=== PATIENT | male | born 1965 | race Caucasian/White ===

== ENCOUNTER 2020-03-25 13:09 | Inpatient (IN) | payer MEDICARE ==
[~2020-03-25] VITALS: Ht 182.9 cm; Wt 138.5 kg
[2020-03-25] VITALS (346 sets, daily range): BP systolic 124–159; BP diastolic 86–106; PULSE 93–95; TEMP 97.8–98; O2SAT 91–100
[2020-03-25] MEDS ORDERED: LIPITOR20 MG PO (13:18)
[2020-03-25] MEDS ORDERED: LOPRESSOR 225 MG/TAB PO (13:19)
[2020-03-25] MEDS ORDERED: FORT1000TA PO (13:20)
[2020-03-25] MEDS ORDERED: PRINIVIL20 MG PO (13:20)
[2020-03-25 13:29] LABS: BASO % 0.3 % (0.0-2.0); EOS # 0.1 (0.0-0.7); EOS % 1.4 % (0-4.0); GRAN # 3.5 (1.4-6.5); HEMATOCRIT 49.7 % (42.0-52.0); HEMOGLOBIN 16.9 g/dl (13.5-18.0); LYMPH # 1.7 (1.2-3.4); MEAN CELL VOLUME 93 fl (80.0-100.0); MEAN CORPUSCULAR HEMOGLOBIN 32 pg (27.0-31.0); MEAN CORPUSCULAR HGB CONC 34 g/dl (33.0-37.0); MEAN PLATELET VOLUME 11.7 fl (7.4-10.4); MONO # 0.5 (0.1-0.6); PLATELET COUNT 140 K/mm3 (130-400); RED BLOOD COUNT 5.37 M/mm3 (4.20-5.60); REDCELL DISTRIBUTION WIDTH-CV 12.6 % (11.5-14.5)
[2020-03-25] MEDS ORDERED: PROZAC40 MG PO (13:29)
[2020-03-25] MEDS ORDERED: GLUCOTROL 5M5 MG/TAB PO (13:32)
[2020-03-25 13:38] LABS: PROTHROMBIN TIME 11.1 SECONDS (9.7-12.8)
[2020-03-25 13:40] LABS: PARTIAL THROMBOPLASTIN TIME 30.3 SECONDS (26.0-37.0)
[2020-03-25 13:43] LABS: ALANINE AMINOTRANSFERASE 60 U/L (4-49); ALBUMIN 3.5 gm/dL (3.5-5.0); ALKALINE PHOSPHATASE 160 U/L (50-136); ANION GAP 9 mmol/L (7-16); AST,SGOT 39 U/L (15-37); BILIRUBIN,TOTAL 0.4 mg/dL (0.0-1.0); BLOOD UREA NITROGEN 17 mg/dL (9-20); C-REACTIVE PROTEIN 0.7 mg/dL (0.0-0.9); CALCIUM 9.3 mg/dL (8.4-10.2); CARBON DIOXIDE 24 mmol/L (22-30); CHLORIDE 102 mmol/L (98-107); CREATININE, serum 1.17 (0.66-1.25); LIPASE 99 U/L (23-300); POTASSIUM 4.8 mmol/L (3.4-5.0); SODIUM 135 mmol/L (137-145); TOTAL PROTEIN 7.5 gm/dL (6.4-8.2)
[2020-03-25 13:48] LABS: GLUCOSE 483 mg/dL (74-106)
[2020-03-25 13:51] LABS: D-DIMER < 200.00 ng/mLDDu (200-230)
[2020-03-25 13:52] LABS: TROPONIN-I < 0.012 ng/mL (0.000-0.035)
[2020-03-26] VITALS (1047 sets, daily range): BP systolic 107–128; BP diastolic 68–86; PULSE 70–86; TEMP 97.5–98.2; O2SAT 79–100
[2020-03-26 04:55] LABS: BASO % 0.3 % (0.0-2.0); EOS # 0.1 (0.0-0.7); EOS % 1.6 % (0-4.0); GRAN # 3.7 (1.4-6.5); GRAN % 53.6 % (42.2-75.2); HEMATOCRIT 45.5 % (42.0-52.0); HEMOGLOBIN 15.3 g/dl (13.5-18.0); LYMPH # 2.5 (1.2-3.4); LYMPH % 36.1 % (20.0-51.0); MEAN CELL VOLUME 93 fl (80.0-100.0); MEAN CORPUSCULAR HEMOGLOBIN 31 pg (27.0-31.0); MEAN CORPUSCULAR HGB CONC 34 g/dl (33.0-37.0); MEAN PLATELET VOLUME 11.6 fl (7.4-10.4); MONO # 0.6 (0.1-0.6); PLATELET COUNT 140 K/mm3 (130-400); RED BLOOD COUNT 4.91 M/mm3 (4.20-5.60); REDCELL DISTRIBUTION WIDTH-CV 12.8 % (11.5-14.5)
[2020-03-26 05:01] LABS: ALANINE AMINOTRANSFERASE 71 U/L (4-49); ALBUMIN 3.3 gm/dL (3.5-5.0); ALKALINE PHOSPHATASE 98 U/L (50-136); ANION GAP 5 mmol/L (7-16); AST,SGOT 50 U/L (15-37); BILIRUBIN,TOTAL 0.4 mg/dL (0.0-1.0); BLOOD UREA NITROGEN 15 mg/dL (9-20); CALCIUM 8.7 mg/dL (8.4-10.2); CARBON DIOXIDE 23 mmol/L (22-30); CHLORIDE 105 mmol/L (98-107); CREATININE, serum 0.88 (0.66-1.25); GLUCOSE 331 mg/dL (74-106); MAGNESIUM 1.5 mg/dL (1.6-2.3); POTASSIUM 4.5 mmol/L (3.4-5.0); SODIUM 133 mmol/L (137-145)
[2020-03-26 05:14] LABS: TROPONIN-I < 0.012 ng/mL (0.000-0.035)
--- NOTE | 2020-03-26 06:37 | NUR ---
HEPARIN DOSE RE ADJUSTED AND VERIFIED WITH JAMIE GONZALEZ.
--- NOTE | 2020-03-26 07:29 | NUR ---
REPORT GIVEN TO JAMIE AMANDA.
[2020-03-26 12:41] LABS: HEMATOCRIT 45.9 % (42.0-52.0); HEMOGLOBIN 15.5 g/dl (13.5-18.0); MEAN CELL VOLUME 94 fl (80.0-100.0); MEAN CORPUSCULAR HEMOGLOBIN 32 pg (27.0-31.0); MEAN CORPUSCULAR HGB CONC 34 g/dl (33.0-37.0); MEAN PLATELET VOLUME 12.1 fl (7.4-10.4); PLATELET COUNT 138 K/mm3 (130-400); RED BLOOD COUNT 4.87 M/mm3 (4.20-5.60); REDCELL DISTRIBUTION WIDTH-CV 12.9 % (11.5-14.5)
[2020-03-26 12:45] LABS: PARTIAL THROMBOPLASTIN TIME 48.3 SECONDS (26.0-37.0); PROTHROMBIN TIME 11.6 SECONDS (9.7-12.8)
--- NOTE | 2020-03-26 13:43 | NUR ---
SW met with patient from door. Patient plans to return home to his apt. in [place] after proceedure. Patient reports that he is new to the area and does not have a PCP and is not familiar the area. Client reports that he will use [facility] in [place] for RX. No DPOA and does not use any DME. Client does have stints in his heart and is on Diability. . EMR contact is Era Stanley . Patient reports that family will transport him home. Patient denies any care concerns at this times.
--- NOTE | 2020-03-26 19:10 | NUR ---
Received report from JAMIE Plummer.
[2020-03-27] VITALS (444 sets, daily range): BP systolic 102–173; BP diastolic 60–99; PULSE 68–87; TEMP 97.6–97.7; O2SAT 78–100
[2020-03-27 05:43] LABS: ALBUMIN 3.4 gm/dL (3.5-5.0); BILIRUBIN,TOTAL 0.4 mg/dL (0.0-1.0); CALCIUM 8.8 mg/dL (8.4-10.2); CREATININE, serum 0.88 (0.66-1.25); MAGNESIUM 1.7 mg/dL (1.6-2.3); POTASSIUM 4.7 mmol/L (3.4-5.0); TOTAL PROTEIN 7.2 gm/dL (6.4-8.2)
--- NOTE | 2020-03-27 08:05 | NUR ---
Pt assessment complete. Pt is sitting up in bed A/O x4, but very restless. Pt up to door of room during shift change asking if the doctor were coming soon that he is feeling better than when he came in. Then proceeded to go back to bed saying "if you're getting other pills may as well bring me a shot of morphine". Pt now rating chest pain "same as always" 05/26. Has no N/V, asking to eat. POC discussed with patient who is uninterested. Heparin infusing. Will continue to monitor.
--- NOTE | 2020-03-27 10:37 | NUR ---
KONSTANTIN met with the patient to follow up about a PCP. The patient reports that he would be interested in getting set up with a PCP is [place]. KONSTANTIN contacted Kanika at [facility] and provided her with the patient's information. Kanika reports that she has to send out a message to the doctors taking new patients and then she will contact the patient to set up an appointment. KONSTANTIN notified the patient of this and he verbalized understanding. KONSTANTIN to continue to follow as needed.
--- NOTE | 2020-03-27 11:52 | NUR ---
Pt left for heart cath at this time.
--- NOTE | 2020-03-27 12:51 | NUR ---
SEE MERGE FOR MEDICATION ADMINISTRATION TIMES AND INTRA AND POST SEDATION ASSESSMENTS.
[2020-03-27] MEDS ORDERED: LIPITOR 40MG TA40 MG PO (14:44)
[2020-03-27] MEDS ORDERED: LOPRESSOR 225 MG/TAB PO (14:44)
[2020-03-27] MEDS ORDERED: ASPIRIN 81M81 MG/TA2 PO (14:45)
[2020-03-27] MEDS ORDERED: LEVEMIR FLEX100 U/ML SQ (14:47)
--- NOTE | 2020-03-27 15:30 | NUR ---
5mls released from arm band, no bleeding noted. Will follow radial band procedure.
--- NOTE | 2020-03-27 15:43 | NUR ---
Air completely removed from TR band, No bleeding at this time. Will continue to monitor.
--- NOTE | 2020-03-27 16:00 | NUR ---
TR band removed no bleeding present. Bandaid placed. Discharge paperwork and instructions reviewed with patient. All questions answered at this time. IV to L shoulder dc'd. Catheter tip intact. Attempting to get ahold of patients niece for a ride at this time.
--- NOTE | 2020-03-27 19:00 | NUR ---
Pt walked out of facility at this time.
== END 2020-03-27 19:00 | disposition home or self-care (01) | DRG 287 ==
LOC: COL.ER 13:09 → IMCU 14:47
PROVIDERS: Emergency Medicine; Internal Medicine Cardiovascular Disease; ADMIT Student in an Organized Health Care Education/Training Program
PROC: 4A023N7 Measurement of Cardiac Sampling and Pressure, Left Heart, Percutaneous Approach (ICD-10-PCS; principal; 2020-03-27)
PROC: B2111ZZ Fluoroscopy of Multiple Coronary Arteries using Low Osmolar Contrast (ICD-10-PCS; 2020-03-27)
DX: R07.9 Chest pain, unspecified (principal); I25.110 Atherosclerotic heart disease of native coronary artery with unstable angina pectoris; Z68.41 Body mass index [BMI] 40.0-44.9, adult; I25.10 Atherosclerotic heart disease of native coronary artery without angina pectoris; E11.65 Type 2 diabetes mellitus with hyperglycemia; E83.42 Hypomagnesemia; E66.01 Morbid (severe) obesity due to excess calories; Z95.818 Presence of other cardiac implants and grafts; F17.210 Nicotine dependence, cigarettes, uncomplicated; I10 Essential (primary) hypertension; E78.5 Hyperlipidemia, unspecified; Z95.5 Presence of coronary angioplasty implant and graft; Z79.84 Long term (current) use of oral hypoglycemic drugs; Z88.5 Allergy status to narcotic agent; Z88.6 Allergy status to analgesic agent
CPT/HCPCS: OP; 99222-AI; 99232-AI; 99239; J1644; J1815; J2250; J2270; J2405; J3010; J3475; J7030; Q9967

== ENCOUNTER 2020-10-14 15:39 | Emergency (ER) | payer MEDICARE ==
[~2020-10-14] VITALS: Ht 182.9 cm; Wt 143.2 kg
[~2020-10-14 15:39] MED LIST: ASPIRIN 81M81 MG/TA2 PO; FORT1000TA PO; GLUCOPHAGE1000 MG PO; GLUCOTROL 5M5 MG/TAB PO; GLUCOTROL10 MG PO; LEVEMIR FLEX100 U/ML SQ; LIPITOR 40MG TA40 MG PO; LIPITOR20 MG PO; LOPRESSOR 225 MG/TAB PO; NEURONTIN600 MG/TAB PO; PRINIVIL20 MG PO; PROZAC 20MG20 MG PO; PROZAC40 MG PO; VOLTAREN 75 DR75 MG PO
[2020-10-14 15:45] VITALS: TEMP 98.2
[2020-10-14 15:59] LABS: BASO % 0.3 % (0.0-2.0); EOS # 0.1 (0.0-0.7); EOS % 1.2 % (0-4.0); GRAN # 4.8 (1.4-6.5); GRAN % 60.8 % (42.2-75.2); HEMATOCRIT 44.1 % (42.0-52.0); HEMOGLOBIN 14.9 g/dl (13.5-18.0); LYMPH # 2.2 (1.2-3.4); LYMPH % 28.1 % (20.0-51.0); MEAN CELL VOLUME 96 fl (80.0-100.0); MEAN CORPUSCULAR HEMOGLOBIN 32 pg (27.0-31.0); MEAN CORPUSCULAR HGB CONC 34 g/dl (33.0-37.0); MEAN PLATELET VOLUME 11.1 fl (7.4-10.4); MONO # 0.7 (0.1-0.6); MONO % 9.3 % (1.7-9.3); PLATELET COUNT 203 K/mm3 (130-400)
[2020-10-14] MEDS ORDERED: AMBIEN 5MG TABLE5 MG PO (16:02)
[2020-10-14] MEDS ORDERED: LATUDA20 MG PO (16:02)
[2020-10-14 16:16] LABS: ALANINE AMINOTRANSFERASE 35 U/L (4-49); ALBUMIN 4.1 gm/dL (3.5-5.0); ALKALINE PHOSPHATASE 84 U/L (50-136); ANION GAP 7 mmol/L (7-16); AST,SGOT 25 U/L (15-37); BILIRUBIN,TOTAL 0.4 mg/dL (0.0-1.0); BLOOD UREA NITROGEN 18 mg/dL (9-20); CALCIUM 9.4 mg/dL (8.4-10.2); CARBON DIOXIDE 30 mmol/L (22-30); CHLORIDE 102 mmol/L (98-107); CREATININE, serum 1.26 (0.66-1.25); GLUCOSE 125 mg/dL (74-106); POTASSIUM 4.7 mmol/L (3.4-5.0); SODIUM 139 mmol/L (137-145); TOTAL PROTEIN 7.9 gm/dL (6.4-8.2)
[2020-10-14 16:29] LABS: TROPONIN-I < 0.012 ng/mL (0.000-0.035)
[2020-10-14 16:56] VITALS: BP 128/83; PULSE 83
== END 2020-10-14 17:06 | disposition home or self-care (01) ==
LOC: COL.ER 15:39
PROVIDERS: Emergency Medicine
DX: R07.9 Chest pain, unspecified (principal); E11.9 Type 2 diabetes mellitus without complications; I25.10 Atherosclerotic heart disease of native coronary artery without angina pectoris; F17.210 Nicotine dependence, cigarettes, uncomplicated; Z88.6 Allergy status to analgesic agent; Z88.5 Allergy status to narcotic agent; Z88.8 Allergy status to other drugs, medicaments and biological substances; Z79.82 Long term (current) use of aspirin; Z79.84 Long term (current) use of oral hypoglycemic drugs

== ENCOUNTER 2020-12-14 00:56 | Observation (INO) | payer MEDICARE ==
[~2020-12-14] VITALS: Ht 180.3 cm; Wt 147.7 kg
[~2020-12-14 00:56] MED LIST changes: +AMBIEN 5MG TABLE5 MG PO; +LATUDA20 MG PO
[2020-12-14 02:41] LABS: BASO % 0.3 % (0.0-2.0); EOS # 0.1 (0.0-0.7); EOS % 1.9 % (0-4.0); GRAN # 4.7 (1.4-6.5); GRAN % 65.2 % (42.2-75.2); HEMATOCRIT 44.4 % (42.0-52.0); HEMOGLOBIN 14.5 g/dl (13.5-18.0); LYMPH # 1.8 (1.2-3.4); LYMPH % 24.7 % (20.0-51.0); MEAN CELL VOLUME 97 fl (80.0-100.0); MEAN CORPUSCULAR HEMOGLOBIN 32 pg (27.0-31.0); MEAN CORPUSCULAR HGB CONC 33 g/dl (33.0-37.0); MEAN PLATELET VOLUME 10.4 fl (7.4-10.4); MONO # 0.6 (0.1-0.6); MONO % 7.6 % (1.7-9.3); PLATELET COUNT 159 K/mm3 (130-400); RED BLOOD COUNT 4.59 M/mm3 (4.20-5.60); REDCELL DISTRIBUTION WIDTH-CV 13.3 % (11.5-14.5)
[2020-12-14 02:50] LABS: INR 1.1 (0.8-3.0); PROTHROMBIN TIME 11.9 SECONDS (9.7-12.8)
[2020-12-14 02:58] LABS: ALANINE AMINOTRANSFERASE 34 U/L (4-49); ALKALINE PHOSPHATASE 109 U/L (50-136); ANION GAP 7 mmol/L (7-16); AST,SGOT 30 U/L (15-37); BILIRUBIN,TOTAL 0.4 mg/dL (0.0-1.0); BLOOD UREA NITROGEN 15 mg/dL (9-20); C-REACTIVE PROTEIN 2.3 mg/dL (0.0-0.9); CALCIUM 9.3 mg/dL (8.4-10.2); CARBON DIOXIDE 27 mmol/L (22-30); CHLORIDE 105 mmol/L (98-107); CREATINE KINASE 123 U/L (55-170); CREATININE, serum 1.25 (0.66-1.25); GLUCOSE 175 mg/dL (74-106); LACTATE DEHYDROGENASE 303 U/L (313-618); POTASSIUM 4.6 mmol/L (3.4-5.0); SODIUM 139 mmol/L (137-145); TOTAL PROTEIN 7.8 gm/dL (6.4-8.2)
[2020-12-14 03:38] LABS: TROPONIN-I < 0.012 ng/mL (0.000-0.035)
[2020-12-14 06:37] VITALS: BP 122/80; PULSE 90; TEMP 98.2
[2020-12-14 08:37] VITALS: BP 136/57; PULSE 92; TEMP 97.6
--- NOTE | 2020-12-14 09:00 | NUR ---
Admission assessment completed, alert/oriented, vital signs stable, reporting some generalized chest tightness/discomfort, troponin negative, heart RRR, lungs CTA/ diminished, on room air and o2 sats WNL, I have notifeid of patient arrival to the floor, I have no orders for meds or Tx at this time, will continue to monitor patient
--- NOTE | 2020-12-14 10:17 | NUR ---
The patient is a PUI for COVID. SW contacted the patient's room phone to complete intake. The patient lives alone in [place]. He states that his niece, Era Otoole (ph#[phone]), also lives in [place] and helps him when needed. He reports independence with ADLs and does not have any DME. The patient's PCP is Dr. Yaya Greene and he receives his medications from [facility] [place]. He reports no difficulties obtaining his meds. The patient does not have a DPOA-HC completed. He states that he is not , does not have any children, and his parents are . He states that he has three siblings that live in [place], but does not talk to them. He would want his niece, Era, to be his decision maker. SW encouraged the patient to complete a DPOA-HC. The patient was interested in obtaining a form. SW to provide the patient's RN with a DPOA-HC form. The patient plans to returns home upon discharge. SW to follow as needed.
[2020-12-14 12:15] VITALS: BP 148/70; PULSE 91; TEMP 97.7
[2020-12-14] MEDS ORDERED: ABILIFY 10MG TA10 MG PO (16:18)
[2020-12-14 16:31] VITALS: BP 130/66; PULSE 85; TEMP 97.8
[2020-12-14 19:17] VITALS: BP 158/84; PULSE 88; TEMP 97.5
--- NOTE | 2020-12-14 19:26 | NUR ---
RECEIVED CHANGE OF SHIFT REPORT FROM DAY SHIFT NURSE.
--- NOTE | 2020-12-14 20:27 | NUR ---
PATIENT REPORTS PAIN TO BOTH SIDES WITH DEEP BREATHING AND COUGHING WITH PRODUCTIVE COUGH "AT TIMES". TELE IN PLACE. IV SITE PATENT WITH IVF INFUSING WITH NO PROBLEMS, REPORTS NO PROBLEMS WITH BEING UP AD BILL IN ROOM.
[2020-12-14 23:54] VITALS: BP 162/88; PULSE 74; TEMP 97.6
--- NOTE | 2020-12-15 00:30 | NUR ---
PATIENT REPORTED IV SITE NEEDS TO BE LOOKED AT, "IT'S LEAKING BAD". OBSERVED IV SITE WITHOUT ACTIVE LEAKING AT THIS TIME W/NO REDNESS/TENDERNESS/INFILTRATION/EDEMA OBSERVED. PATIENT REPORTED TO PCT THAT HE DID NOT THINK IV MS "WENT THROUGH... DID NOT FEEL IT" THEN REPORTED TO THIS NURSE THAT HE THOUGHT MS WENT THROUGH AND THAT HE "FELT IT GO THROUGH". ATTEMPTED VENIPUNCTURE FOR IV SITE, UNSUCCESSFUL. CURRENT UPPER RF IV SITE IN PLACE. NO FURTHER VENIPUNCTURES ATTEMPTED, PATIENT REPORTED H/O VEINS "ROLLING".
--- NOTE | 2020-12-15 00:57 | NUR ---
KWAME AYALA EVALUATED BUE FOR POSSIBLE VENIPUNCTURE FOR NEW IV SITE AND AFTER DISCUSSING WITH PATIENT, DECISION BY PATIENT TO POSTPONE ANY FURTHER VENIPUNCTURE ATTEMPTS AT THIS TIME STATING HE WILL SEE IF IV SITE WILL LAST THROUGH TILL IN AM BEFORE NEEDING ANOTHER IV SITE. NO OTHER NEEDS REPORTED. CURRENT IV SITE REMAINS WITHOUT REDNESS/LEAKING/EDEMA/PAIN WITH PALPATION AT THIS TIME.
[2020-12-15 05:02] VITALS: BP 152/80; PULSE 76; TEMP 97.4
[2020-12-15 06:20] LABS: BASO % 0.3 % (0.0-2.0); EOS % 0.5 % (0-4.0); GRAN # 5.4 (1.4-6.5); GRAN % 70.4 % (42.2-75.2); HEMOGLOBIN 12.6 g/dl (13.5-18.0); LYMPH # 1.6 (1.2-3.4); MEAN CELL VOLUME 96 fl (80.0-100.0); MEAN CORPUSCULAR HEMOGLOBIN 32 pg (27.0-31.0); MEAN CORPUSCULAR HGB CONC 33 g/dl (33.0-37.0); MEAN PLATELET VOLUME 10.5 fl (7.4-10.4); MONO # 0.6 (0.1-0.6); MONO % 7.3 % (1.7-9.3); PLATELET COUNT 149 K/mm3 (130-400); RED BLOOD COUNT 3.94 M/mm3 (4.20-5.60); REDCELL DISTRIBUTION WIDTH-CV 13.2 % (11.5-14.5)
[2020-12-15 06:32] LABS: CALCIUM 8.5 mg/dL (8.4-10.2); CREATININE, serum 1.04 (0.66-1.25); MAGNESIUM 1.4 mg/dL (1.6-2.3); POTASSIUM 4.1 mmol/L (3.4-5.0)
--- NOTE | 2020-12-15 07:39 | NUR ---
CHANGE OF SHIFT REPORT GIVEN TO DAY SHIFT NURSERADHA.
[2020-12-15 07:47] VITALS: BP 156/82; PULSE 75; TEMP 97.8
--- NOTE | 2020-12-15 09:54 | NUR ---
Initial visit; Patient thanked Metal Room Dental Technician for looking in on him, listening and offering God's blessings.
--- NOTE | 2020-12-15 10:13 | NUR ---
The patient's COVID results came back negative. KONSTANTIN met with the patient and followed up about the DPOA-HC. The patient is interested in completing a DPOA-HC. He designated his niece, Era Otoole. KONSTANTIN and his RN, Josias, witnessed the patient's signature. The patient was provided with the original and some copies.
--- NOTE | 2020-12-15 10:25 | NUR ---
Assessment completed, alert/oriented, vital signs stable, continues to report moderate chest discomfort/ notified and we will get a chest CT, lungs CTA/ diminished in lower lobes, heart RRR/distal pulses are palpable, SR on tele, continues to do well on room air, fsbs are in control, Oxycodone given per request, notified of low Mg level today/ replacing with IV Mg, plans to discharge home if Chest CT negative
[2020-12-15 11:49] VITALS: BP 170/73; PULSE 65; TEMP 98.1
--- NOTE | 2020-12-15 12:02 | NUR ---
The patient was transferred to the hospital from the [facility]. The hospitalist notified KONSTANTIN that the patient is medically stable and able to d/c today. The hospitalist would like a screen done. KONSTANTIN contacted and faxed the patient's information to Radha at the Crisis Stabilization Unit. Radha reports that they will look over the info and call KONSTANTIN back to set up a zoom meeting.
--- NOTE | 2020-12-15 13:00 | NUR ---
Patient removed his IV, I restarted IV as he has orders for CT/PE protocol and IV MG replacement, he is going down for CT now
--- NOTE | 2020-12-15 13:08 | NUR ---
Ara, screener at [facility], contacted KONSTANTIN and provided KONSTANTIN with the Zoom meeting ID and password for the patient. KONSTANTIN obtained an iPad and set up the Zoom meeting. KONSTANTIN provided the iPad to the patient to get screened. The patient then exited his room and provided the iPad back to . Ara was still on the Zoom meeting. Ara reports that they want the patient to come back to the [facility]. Ara will contact KONSTANTIN back around [phone] to set up a transport time. KONSTANTIN notified the hospitalist and the patient's RN. Awaiting CAT scan results and for the patient to complete his magnesium.
[2020-12-15] MEDS ORDERED: RT Albuterol HFA MDI IH (15:16)
[2020-12-15] MEDS ORDERED: PREDNISONE20 MG PO (15:16)
[2020-12-15] MEDS ORDERED: MONODOX100 PO (15:16)
[2020-12-15] MEDS ORDERED: IBU600 MG PO (15:19)
--- NOTE | 2020-12-15 15:37 | NUR ---
KONSTANTIN contacted the [facility] to inquire if they can take the patient to get his prescriptions. The medical chemist reports that they can. KONSTANTIN then followed up with the patient about getting his prescriptions at a pharmacy. The patient reports that he does not have any money and cannot afford to get his meds. KONSTANTIN provided a med voucher to the patient for his meds to [facility], Total: $63.13. KONSTANTIN faxed the med voucher and scripts to Lamar at [facility]. Ara, at [facility], then contacted KONSTANTIN back for transportation. Mcdonald will be here at 1615 to pickling solution maker the patient and take him to [facility] to pickling solution maker his meds. KONSTANTIN updated the patient's RN on the above information. The patient is to discharge today, 12/05, to the Crisis Stabilization Unit. No additional needs at this time.
--- NOTE | 2020-12-15 16:47 | NUR ---
Discharge instructions reveiwed with the patient, instructed to follow up with PCP in 1 week, discussed medications and scritps for doxy/prednisone/albuterol provided, IV and tele removed, patient is discharging and leaving with [facility] Crisis [facility] for inpatient eval/tx, I escorted patient out by wheelchair
== END 2020-12-15 16:50 | disposition psychiatric hospital, planned readmission (93) ==
LOC: COL.ER 00:56 → PEDS 04:09 → MEDICAL 12-15 05:35
PROVIDERS: Emergency Medicine; Internal Medicine; ADMIT Student in an Organized Health Care Education/Training Program
DX: J18.9 Pneumonia, unspecified organism (principal); I95.9 Hypotension, unspecified; E11.9 Type 2 diabetes mellitus without complications; F32.9 Major depressive disorder, single episode, unspecified; E87.2 Acidosis; F17.210 Nicotine dependence, cigarettes, uncomplicated; I25.10 Atherosclerotic heart disease of native coronary artery without angina pectoris; E78.5 Hyperlipidemia, unspecified; I10 Essential (primary) hypertension; E66.01 Morbid (severe) obesity due to excess calories; Z88.1 Allergy status to other antibiotic agents; Z88.5 Allergy status to narcotic agent; Z88.8 Allergy status to other drugs, medicaments and biological substances; Z79.82 Long term (current) use of aspirin; Z79.84 Long term (current) use of oral hypoglycemic drugs; Z95.5 Presence of coronary angioplasty implant and graft; Z20.822 Contact with and (suspected) exposure to COVID-19
CPT/HCPCS: A9284; G0378; J0456; J0696; J1100; J1650; J1815; J2270; J3475; J7030; J7050; Q9967

== ENCOUNTER 2020-12-17 20:38 | Emergency (ER) | payer MEDICARE ==
[~2020-12-17] VITALS: Ht 180.3 cm; Wt 140.9 kg
[~2020-12-17 20:38] MED LIST changes: +ABILIFY 10MG TA10 MG PO; +IBU600 MG PO; +MONODOX100 PO; +PREDNISONE20 MG PO; +RT Albuterol HFA MDI IH
[2020-12-17 20:44] VITALS: TEMP 97.8
[2020-12-17 21:36] LABS: BASO % 0.2 % (0.0-2.0); GRAN # 6.4 (1.4-6.5); HEMATOCRIT 42.4 % (42.0-52.0); HEMOGLOBIN 13.7 g/dl (13.5-18.0); LYMPH # 1.2 (1.2-3.4); LYMPH % 14.3 % (20.0-51.0); MEAN CELL VOLUME 98 fl (80.0-100.0); MEAN CORPUSCULAR HEMOGLOBIN 32 pg (27.0-31.0); MEAN CORPUSCULAR HGB CONC 32 g/dl (33.0-37.0); MEAN PLATELET VOLUME 10.7 fl (7.4-10.4); MONO # 0.5 (0.1-0.6); PLATELET COUNT 181 K/mm3 (130-400); RED BLOOD COUNT 4.35 M/mm3 (4.20-5.60); REDCELL DISTRIBUTION WIDTH-CV 13.4 % (11.5-14.5)
[2020-12-17 21:46] LABS: ALANINE AMINOTRANSFERASE 34 U/L (4-49); ALBUMIN 3.7 gm/dL (3.5-5.0); ALKALINE PHOSPHATASE 159 U/L (50-136); ANION GAP 6 mmol/L (7-16); AST,SGOT 23 U/L (15-37); BILIRUBIN,TOTAL 0.3 mg/dL (0.0-1.0); BLOOD UREA NITROGEN 23 mg/dL (9-20); CALCIUM 9.5 mg/dL (8.4-10.2); CARBON DIOXIDE 29 mmol/L (22-30); CHLORIDE 103 mmol/L (98-107); CREATININE, serum 1.29 (0.66-1.25); GLUCOSE 186 mg/dL (74-106); POTASSIUM 4.9 mmol/L (3.4-5.0); SODIUM 139 mmol/L (137-145); TOTAL PROTEIN 7.4 gm/dL (6.4-8.2)
[2020-12-17 22:00] LABS: TROPONIN-I < 0.012 ng/mL (0.000-0.035)
[2020-12-17 23:02] VITALS: BP 156/90; PULSE 73
== END 2020-12-17 23:02 | disposition home or self-care (01) ==
LOC: COL.ER 20:38
PROVIDERS: Emergency Medicine
DX: I10 Essential (primary) hypertension (principal); E11.9 Type 2 diabetes mellitus without complications; I25.10 Atherosclerotic heart disease of native coronary artery without angina pectoris; Z95.5 Presence of coronary angioplasty implant and graft; Z86.79 Personal history of other diseases of the circulatory system; Z88.5 Allergy status to narcotic agent; Z88.6 Allergy status to analgesic agent; Z88.8 Allergy status to other drugs, medicaments and biological substances; Z79.82 Long term (current) use of aspirin; Z79.84 Long term (current) use of oral hypoglycemic drugs

== ENCOUNTER 2020-12-18 06:08 | Emergency (ER) | payer MEDICARE ==
[2020-12-18 06:46] VITALS: BP 133/77; PULSE 84; TEMP 97.6
== END 2020-12-18 07:02 | disposition home or self-care (01) ==
LOC: COL.ER 06:08
DX: I10 Essential (primary) hypertension (principal); Z91.14 Patient's other noncompliance with medication regimen; Z79.82 Long term (current) use of aspirin; Z79.52 Long term (current) use of systemic steroids; Z79.84 Long term (current) use of oral hypoglycemic drugs

== ENCOUNTER 2021-03-07 20:51 | Observation (INO) | payer MEDICARE ==
[~2021-03-07] VITALS: Ht 180.3 cm; Wt 161.1 kg
[2021-03-07 21:15] LABS: BASO % 0.3 % (0.0-2.0); EOS # 0.1 (0.0-0.7); EOS % 1.4 % (0-4.0); HEMATOCRIT 43.8 % (42.0-52.0); HEMOGLOBIN 14.3 g/dl (13.5-18.0); INR 1.1 (0.8-3.0); LYMPH # 1.9 (1.2-3.4); LYMPH % 24.7 % (20.0-51.0); MEAN CELL VOLUME 95 fl (80.0-100.0); MEAN CORPUSCULAR HEMOGLOBIN 31 pg (27.0-31.0); MEAN CORPUSCULAR HGB CONC 33 g/dl (33.0-37.0); MEAN PLATELET VOLUME 10.8 fl (7.4-10.4); MONO # 0.6 (0.1-0.6); MONO % 8.2 % (1.7-9.3); PLATELET COUNT 168 K/mm3 (130-400); PROTHROMBIN TIME 12.4 SECONDS (9.7-12.8); REDCELL DISTRIBUTION WIDTH-CV 13.2 % (11.5-14.5)
[2021-03-07 21:18] LABS: PARTIAL THROMBOPLASTIN TIME 31.2 SECONDS (26.0-37.0)
[2021-03-07 21:20] LABS: ALANINE AMINOTRANSFERASE 36 U/L (4-49); ALBUMIN 3.9 gm/dL (3.5-5.0); ALKALINE PHOSPHATASE 94 U/L (50-136); ANION GAP 6 mmol/L (7-16); AST,SGOT 27 U/L (15-37); BILIRUBIN,TOTAL 0.2 mg/dL (0.0-1.0); BLOOD UREA NITROGEN 25 mg/dL (9-20); CALCIUM 9.6 mg/dL (8.4-10.2); CARBON DIOXIDE 27 mmol/L (22-30); CHLORIDE 105 mmol/L (98-107); CREATININE, serum 1.45 (0.66-1.25); GLUCOSE 178 mg/dL (74-106); LIPASE 61 U/L (23-300); POTASSIUM 5.5 mmol/L (3.4-5.0); SODIUM 139 mmol/L (137-145); TOTAL PROTEIN 8.3 gm/dL (6.4-8.2)
[2021-03-07 22:05] LABS: TROPONIN-I < 0.012 ng/mL (0.000-0.035)
[2021-03-07] MEDS ORDERED: NEURONTIN800 MG/TAB PO (23:03)
[2021-03-07] MEDS ORDERED: MINIPRESS2 MG PO (23:03)
[2021-03-07] MEDS ORDERED: PROZAC40 MG PO (23:04)
[2021-03-07] MEDS ORDERED: AMBIEN 10MG10 MG PO (23:05)
[2021-03-07] MEDS ORDERED: PRINIVIL20 MG PO (23:07)
[2021-03-08] VITALS (98 sets, daily range): BP systolic 102–143; BP diastolic 53–113; PULSE 64–85; TEMP 97.6–98.1; O2SAT 70–96
--- NOTE | 2021-03-08 01:27 | NUR ---
Patient arrived from the Emergency Department via stretcher. He is steady on his feet and walked over the the ICU bed. His vitals are stable. HR 67; BP 123/63; 95% on room air, and breathing 16 per minute. His only complaint is a lingering chest pain that he said nothing helps. He refuses Nitroglycerine because it causes him "Headaches". I did give him a dose of morphine. I called Brandie KAMARA to confirm the Order she put earlier. It was a Dextrose and Novolin 10 units. I called Brandie to confirm the order- as I've never seen this order before- and she said "Yes, it was supposed to be given to him hours ago, while he was in the Emergency Department, I told them to give it to him." I verified the order with Briana AYALA and I gave the Dextrose and Novalin. Patient is resting, still complining of chest pain. Vitals are stable. He remains NPO. Fluids running.
[2021-03-08 02:23] LABS: ANION GAP 5 mmol/L (7-16); BLOOD UREA NITROGEN 24 mg/dL (9-20); CALCIUM 9.4 mg/dL (8.4-10.2); CARBON DIOXIDE 26 mmol/L (22-30); CHLORIDE 107 mmol/L (98-107); CREATININE, serum 1.39 (0.66-1.25); GLUCOSE 100 mg/dL (74-106); POTASSIUM 4.9 mmol/L (3.4-5.0); SODIUM 139 mmol/L (137-145)
[2021-03-08 02:35] LABS: TROPONIN-I < 0.012 ng/mL (0.000-0.035)
[2021-03-08 05:16] LABS: BASO % 0.1 % (0.0-2.0); EOS # 0.1 (0.0-0.7); EOS % 1.2 % (0-4.0); GRAN % 80.3 % (42.2-75.2); HEMATOCRIT 41.6 % (42.0-52.0); HEMOGLOBIN 13.6 g/dl (13.5-18.0); LYMPH # 0.9 (1.2-3.4); LYMPH % 10.8 % (20.0-51.0); MEAN CELL VOLUME 97 fl (80.0-100.0); MEAN CORPUSCULAR HEMOGLOBIN 32 pg (27.0-31.0); MEAN CORPUSCULAR HGB CONC 33 g/dl (33.0-37.0); MEAN PLATELET VOLUME 11.1 fl (7.4-10.4); MONO # 0.6 (0.1-0.6); MONO % 7.3 % (1.7-9.3); PLATELET COUNT 156 K/mm3 (130-400); REDCELL DISTRIBUTION WIDTH-CV 13.6 % (11.5-14.5)
[2021-03-08 05:30] LABS: ANION GAP 7 mmol/L (7-16); BLOOD UREA NITROGEN 25 mg/dL (9-20); CALCIUM 9.2 mg/dL (8.4-10.2); CARBON DIOXIDE 25 mmol/L (22-30); CHLORIDE 107 mmol/L (98-107); CREATININE, serum 1.34 (0.66-1.25); GLUCOSE 99 mg/dL (74-106); POTASSIUM 4.9 mmol/L (3.4-5.0); SODIUM 140 mmol/L (137-145)
[2021-03-08 05:46] LABS: TROPONIN-I < 0.012 ng/mL (0.000-0.035)
[2021-03-08 06:32] LABS: CHOLESTEROL RISK RATIO 5.6
--- NOTE | 2021-03-08 08:12 | NUR ---
During morning assessment, patient is awake in bed sitting up. PT complains of a chest pain scoring at 7-10. PRN morphine is given as ordered PT does have some relief. PT states, "This medication never lasts even a hour". PT asks for water/food and is advised that the his diet order will be revised after his procedures and the doctors have a chance to review them. PT is pleasant and understanding. Vitals are unremarkable. PT is resting in bed watching tv and will call for help when it is needed.
--- NOTE | 2021-03-08 09:19 | NUR ---
Statistics Manager met with the patient to complete intake. The patient lives independently in [place]. The patient denies DME use. The patient's PCP is Dr. Yaya Greene. The patient receives medications from [facility] in [place]. The patient has advanced directives in the EMR and designates his niece, Era. The patient plans to return home, Era will provide transportation. *Discharge disposition* Home to [place]
--- NOTE | 2021-03-08 10:16 | NUR ---
Pt caught his pinky toe nail on bed rail and ripped the nail off. Toe was cleaned with surgical scrub, alcohol and saline. A small pressure dressing has been applied, will continue to monitor for further bleeding.
--- NOTE | 2021-03-08 16:07 | NUR ---
PT moved from ICU room 5 to medical room 307. PT helped to bed and IV fluids hooked up to pump at 100ml/hr. PT stated he would like to meet is nurse on the floor. The call light was hit with no response. This RN went to find the nurses at the station. JAMIE Calix who is assuming care was notified patient is in the room with call and would like to meet her.
--- NOTE | 2021-03-08 17:08 | NUR ---
MORPHINE AND INSULIN GIVEN TO PT. PT PLEASANT AND TALKING, APPEARS RELAXED IN BED, NO GRIMACING OR GUARDING PRESENT.
--- NOTE | 2021-03-08 18:10 | NUR ---
PT REPORTING CHEST PAIN 7/10 AND REPORTS IT'S "PRETTY GOOD". PT ATE ALL OF DINNER.
[2021-03-09] VITALS (21 sets, daily range): BP systolic 82–134; BP diastolic 44–75; PULSE 64–90; TEMP 97.7–98.3
--- NOTE | 2021-03-09 05:26 | NUR ---
NO NEW ISSUES NOTED OR REPORTED BY PATIENT THROUGHOUT THE NIGHT.
--- NOTE | 2021-03-09 08:42 | NUR ---
Pt is alert and oriented x3. Heart tones present and normal, no murmur noted. Right lung sounds are diminished with fine crackles auscultated in the right upper lobe. Left lung sounds are diminished. Pt states that they are "not having any shortness of breath". Skin is intact, clean, and dry. Hand ready to wear department manager are equal bilaterally. No other complaints at this time.
[2021-03-09 11:11] LABS: BASO % 0.2 % (0.0-2.0); EOS # 0.1 (0.0-0.7); EOS % 1.9 % (0-4.0); GRAN # 3.5 (1.4-6.5); GRAN % 65.8 % (42.2-75.2); HEMATOCRIT 37.8 % (42.0-52.0); HEMOGLOBIN 12.2 g/dl (13.5-18.0); LYMPH # 1.3 (1.2-3.4); LYMPH % 24.6 % (20.0-51.0); MEAN CELL VOLUME 96 fl (80.0-100.0); MEAN CORPUSCULAR HEMOGLOBIN 31 pg (27.0-31.0); MEAN CORPUSCULAR HGB CONC 32 g/dl (33.0-37.0); MEAN PLATELET VOLUME 10.9 fl (7.4-10.4); MONO # 0.4 (0.1-0.6); MONO % 7.1 % (1.7-9.3); PLATELET COUNT 139 K/mm3 (130-400); RED BLOOD COUNT 3.92 M/mm3 (4.20-5.60); REDCELL DISTRIBUTION WIDTH-CV 13.2 % (11.5-14.5)
[2021-03-09 11:20] LABS: CALCIUM 8.4 mg/dL (8.4-10.2); CREATININE, serum 1.11 (0.66-1.25); POTASSIUM 4.7 mmol/L (3.4-5.0)
[2021-03-09] MEDS ORDERED: IMDUR 30MG30 MG/TAB PO ×3 (11:48→14:40)
[2021-03-09] MEDS ORDERED: NITROSTAT0.4 MG/TAB SL (11:49)
--- NOTE | 2021-03-09 12:29 | NUR ---
BOLUS NEARING END OF INFUSION, BP CONSISTENT WITH START OF INFUSION. PT STILL REPORTS DIZZINESS. PT NOW REPORTING DISCOMFORT AT IV SITE, SITE FEELS FIRM.
--- NOTE | 2021-03-09 13:03 | NUR ---
MULTIPLE ATTEMPTS FOR IV ACCESS MADE, CONTINUING ATTEMPTS VIA MULTIPLE NURSES, BP LOWER. IV ACCESS OBTAINED, BOLUS INFUSING NOW
--- NOTE | 2021-03-09 16:14 | NUR ---
pt got up with assistance for the bathroom, pt reports dizziness, had to sit down on first attempt to get up. pt had gait belt on, refused to use urinal. pt assisted back to bed and bed alarm set. pt still reports dizziness with positional changes. blood pressures in low 100's systolic.
--- NOTE | 2021-03-09 17:00 | NUR ---
PT SYSTOLIC LOW 100'S AT THIS TIME. FLUIDS INFUSING. PT REPORTING DIZZINESS AND CHEST PAIN STILL PRESENT. BP TOO LOW FOR MORPHINE.
[2021-03-10 00:01] VITALS: BP 126/68; PULSE 69; TEMP 97.9
[2021-03-10 04:36] VITALS: BP 121/55; PULSE 73; TEMP 97.3
--- NOTE | 2021-03-10 05:10 | NUR ---
PATIENTS BLOOD PRESSURE STABLE THROUGHOUT THE NIGHT WITH NO NEW CONCERNS NOTED OR REPORTED BY PATIENT.
[2021-03-10 06:09] VITALS: BP 133/67
[2021-03-10 06:42] LABS: BASO % 0.4 % (0.0-2.0); EOS # 0.1 (0.0-0.7); EOS % 1.9 % (0-4.0); GRAN # 3.2 (1.4-6.5); GRAN % 59.2 % (42.2-75.2); HEMATOCRIT 38.1 % (42.0-52.0); HEMOGLOBIN 12.2 g/dl (13.5-18.0); LYMPH # 1.5 (1.2-3.4); LYMPH % 28.8 % (20.0-51.0); MEAN CELL VOLUME 96 fl (80.0-100.0); MEAN CORPUSCULAR HEMOGLOBIN 31 pg (27.0-31.0); MEAN CORPUSCULAR HGB CONC 32 g/dl (33.0-37.0); MONO # 0.5 (0.1-0.6); MONO % 9.3 % (1.7-9.3); PLATELET COUNT 139 K/mm3 (130-400); RED BLOOD COUNT 3.99 M/mm3 (4.20-5.60)
[2021-03-10 06:47] LABS: CALCIUM 8.5 mg/dL (8.4-10.2); CREATININE, serum 1.18 (0.66-1.25); POTASSIUM 4.7 mmol/L (3.4-5.0)
[2021-03-10 08:04] VITALS: BP 141/81; PULSE 74; TEMP 97.5
--- NOTE | 2021-03-10 08:30 | NUR ---
Patient sitting up in bed eating breakfast. A&Ox4. VSS. IV CDI, fluids infusing. Denies discomfort, reports chest pain. Patient states that he feels much better today and is hoping to go home today. Call light within reach
--- NOTE | 2021-03-10 10:50 | NUR ---
Discharge paperwork reviewed with the patient. Patient verbalized an understanding to follow doctors orders. No further needs expressed from the patient. Call light within reach. Patient waiting on ride home
--- NOTE | 2021-03-10 13:54 | NUR ---
IV removed, tip intact. Gauze and coban applied. Patient ambulated independently with nursing staff to ER entrance with discharge paperwork and personal belongings.
== END 2021-03-10 13:50 | disposition home or self-care (01) ==
LOC: COL.ER 20:51 → ICU 22:19 → MEDICAL 22:19
PROVIDERS: Emergency Medicine; Nurse Practitioner Family; Physician Assistant
DX: R07.9 Chest pain, unspecified (principal); I25.10 Atherosclerotic heart disease of native coronary artery without angina pectoris; I10 Essential (primary) hypertension; E11.9 Type 2 diabetes mellitus without complications; E78.5 Hyperlipidemia, unspecified; N17.9 Acute kidney failure, unspecified; J84.9 Interstitial pulmonary disease, unspecified; F32.9 Major depressive disorder, single episode, unspecified; F12.20 Cannabis dependence, uncomplicated; E66.01 Morbid (severe) obesity due to excess calories; F17.290 Nicotine dependence, other tobacco product, uncomplicated; Z68.42 Body mass index [BMI] 45.0-49.9, adult; Z95.5 Presence of coronary angioplasty implant and graft; E87.5 Hyperkalemia; G43.909 Migraine, unspecified, not intractable, without status migrainosus; I07.1 Rheumatic tricuspid insufficiency; Z79.82 Long term (current) use of aspirin; Z79.899 Other long term (current) drug therapy; Z79.84 Long term (current) use of oral hypoglycemic drugs; Z98.62 Peripheral vascular angioplasty status; Z95.818 Presence of other cardiac implants and grafts
CPT/HCPCS: 99233-AI; A9500; G0378; J0456; J0610; J0696; J1815; J1885; J2270; J2785; J7030; J7040; J7050

== ENCOUNTER 2021-07-28 09:27 | Emergency (ER) | payer MEDICARE ==
[~2021-07-28] VITALS: Ht 180.3 cm; Wt 156.8 kg
[~2021-07-28 09:27] MED LIST changes: +AMBIEN 10MG10 MG PO; +IMDUR 30MG30 MG/TAB PO; +MINIPRESS2 MG PO; +NEURONTIN800 MG/TAB PO; +NITROSTAT0.4 MG/TAB SL
[2021-07-28 09:35] VITALS: TEMP 97.9
[2021-07-28 09:57] LABS: BASO % 0.3 % (0.0-2.0); EOS # 0.1 (0.0-0.7); GRAN # 4.6 (1.4-6.5); HEMATOCRIT 48.4 % (42.0-52.0); HEMOGLOBIN 16.4 g/dl (13.5-18.0); LYMPH % 27.2 % (20.0-51.0); MEAN CELL VOLUME 89 fl (80.0-100.0); MEAN CORPUSCULAR HEMOGLOBIN 30 pg (27.0-31.0); MEAN CORPUSCULAR HGB CONC 34 g/dl (33.0-37.0); MEAN PLATELET VOLUME 11.7 fl (7.4-10.4); MONO # 0.7 (0.1-0.6); MONO % 9.1 % (1.7-9.3); PLATELET COUNT 150 K/mm3 (130-400); RED BLOOD COUNT 5.47 M/mm3 (4.20-5.60); REDCELL DISTRIBUTION WIDTH-CV 13.2 % (11.5-14.5)
[2021-07-28 10:04] LABS: ALANINE AMINOTRANSFERASE 42 U/L (4-49); ALBUMIN 4.2 gm/dL (3.5-5.0); ALKALINE PHOSPHATASE 166 U/L (50-136); ANION GAP 10 mmol/L (7-16); AST,SGOT 30 U/L (15-37); BILIRUBIN,TOTAL 0.6 mg/dL (0.0-1.0); BLOOD UREA NITROGEN 19 mg/dL (9-20); CALCIUM 9.4 mg/dL (8.4-10.2); CARBON DIOXIDE 25 mmol/L (22-30); CHLORIDE 97 mmol/L (98-107); CREATININE, serum 1.08 (0.66-1.25); POTASSIUM 4.3 mmol/L (3.4-5.0); SODIUM 132 mmol/L (137-145); TOTAL PROTEIN 8.5 gm/dL (6.4-8.2)
[2021-07-28 10:13] LABS: GLUCOSE 575 mg/dL (74-106)
[2021-07-28 10:21] LABS: TROPONIN-I < 0.012 ng/mL (0.000-0.035)
[2021-07-28 13:08] VITALS: BP 122/71; PULSE 82
[2021-07-29] MEDS ORDERED: GLUCOPHAGE1000 MG PO ×3 (01:50→03:50)
== END 2021-07-28 13:13 | disposition home or self-care (01) ==
LOC: COL.ER 09:27
PROVIDERS: Emergency Medicine
DX: I10 Essential (primary) hypertension (principal); E11.65 Type 2 diabetes mellitus with hyperglycemia; F32.9 Major depressive disorder, single episode, unspecified; E66.01 Morbid (severe) obesity due to excess calories; I25.10 Atherosclerotic heart disease of native coronary artery without angina pectoris; E78.5 Hyperlipidemia, unspecified; Z20.822 Contact with and (suspected) exposure to COVID-19; Z68.42 Body mass index [BMI] 45.0-49.9, adult; Z79.82 Long term (current) use of aspirin; Z79.84 Long term (current) use of oral hypoglycemic drugs
CPT/HCPCS: J1815; J1885; J7030

== ENCOUNTER 2021-07-29 00:21 | Emergency (ER) | payer MEDICARE ==
[~2021-07-29] VITALS: Ht 180.3 cm; Wt 156.8 kg
[2021-07-29 00:48] VITALS: TEMP 97
[2021-07-29 01:39] LABS: BASO % 0.6 % (0.0-2.0); EOS # 0.1 (0.0-0.7); EOS % 1.3 % (0-4.0); GRAN # 4.1 (1.4-6.5); GRAN % 59.1 % (42.2-75.2); HEMATOCRIT 45.7 % (42.0-52.0); HEMOGLOBIN 15.8 g/dl (13.5-18.0); LYMPH # 2.1 (1.2-3.4); LYMPH % 30.3 % (20.0-51.0); MEAN CELL VOLUME 87 fl (80.0-100.0); MEAN CORPUSCULAR HEMOGLOBIN 30 pg (27.0-31.0); MEAN CORPUSCULAR HGB CONC 35 g/dl (33.0-37.0); MEAN PLATELET VOLUME 11.9 fl (7.4-10.4); MONO # 0.6 (0.1-0.6); MONO % 8.3 % (1.7-9.3); PLATELET COUNT 154 K/mm3 (130-400); RED BLOOD COUNT 5.28 M/mm3 (4.20-5.60); REDCELL DISTRIBUTION WIDTH-CV 13.2 % (11.5-14.5)
[2021-07-29 01:40] LABS: COLLECTION METHOD CLEAN CATCH
[2021-07-29 01:45] LABS: MUCOUS Present /lpf; PH 5 (5-8); SQUAMOUS EPITHELIAL None Seen /hpf; URINE APPEARANCE Clear; URINE BACTERIA None Seen /hpf; URINE BILIRUBIN Negative (NEGATIVE); URINE BLOOD Negative (NEGATIVE); URINE COLOR Straw; URINE GLUCOSE 3+ (NEGATIVE); URINE KETONE Negative (NEGATIVE); URINE LEUKOCYTE ESTERASE Negative (NEGATIVE); URINE NITRATE Negative (NEGATIVE); URINE PROTEIN(semi-quant) Negative (NEGATIVE); URINE RBC None Seen /hpf; URINE UROBILINOGEN Negative (NEGATIVE)
[2021-07-29] MEDS ORDERED: GLUCOPHAGE1000 MG PO ×3 (01:50→03:50)
[2021-07-29 02:05] LABS: ACETONE,SERUM NEGATIVE
[2021-07-29 02:17] LABS: ALANINE AMINOTRANSFERASE 50 U/L (4-49); ALKALINE PHOSPHATASE 187 U/L (50-136); ANION GAP 10 mmol/L (7-16); AST,SGOT 35 U/L (15-37); BILIRUBIN,TOTAL 0.5 mg/dL (0.0-1.0); BLOOD UREA NITROGEN 20 mg/dL (9-20); CALCIUM 9.6 mg/dL (8.4-10.2); CARBON DIOXIDE 26 mmol/L (22-30); CHLORIDE 99 mmol/L (98-107); CREATININE, serum 1.19 (0.66-1.25); LIPASE 99 U/L (23-300); POTASSIUM 4.3 mmol/L (3.4-5.0); SODIUM 135 mmol/L (137-145)
[2021-07-29 02:22] LABS: GLUCOSE 569 mg/dL (74-106)
[2021-07-29 02:30] LABS: TROPONIN-I < 0.012 ng/mL (0.000-0.035)
[2021-07-29 03:57] VITALS: BP 141/90; PULSE 93
== END 2021-07-29 03:57 | disposition home or self-care (01) ==
LOC: COL.ER 00:21
PROVIDERS: Physician Assistant
DX: E11.65 Type 2 diabetes mellitus with hyperglycemia (principal); R07.9 Chest pain, unspecified; I10 Essential (primary) hypertension; I25.10 Atherosclerotic heart disease of native coronary artery without angina pectoris; E66.01 Morbid (severe) obesity due to excess calories; F32.9 Major depressive disorder, single episode, unspecified; Z95.5 Presence of coronary angioplasty implant and graft; Z68.42 Body mass index [BMI] 45.0-49.9, adult; Z79.82 Long term (current) use of aspirin; Z79.84 Long term (current) use of oral hypoglycemic drugs
CPT/HCPCS: J1815; J7030

== ENCOUNTER 2021-08-02 18:42 | Emergency (ER) | payer MEDICARE ==
[~2021-08-02] VITALS: Ht 177.8 cm; Wt 156.8 kg
[2021-08-02 19:27] LABS: BASO % 0.3 % (0.0-2.0); EOS # 0.1 (0.0-0.7); EOS % 1.2 % (0-4.0); GRAN # 4.4 (1.4-6.5); GRAN % 59.2 % (42.2-75.2); HEMATOCRIT 43.3 % (42.0-52.0); HEMOGLOBIN 14.8 g/dl (13.5-18.0); LYMPH # 2.2 (1.2-3.4); LYMPH % 30.4 % (20.0-51.0); MEAN CELL VOLUME 89 fl (80.0-100.0); MEAN CORPUSCULAR HEMOGLOBIN 30 pg (27.0-31.0); MEAN CORPUSCULAR HGB CONC 34 g/dl (33.0-37.0); MEAN PLATELET VOLUME 12.6 fl (7.4-10.4); MONO # 0.6 (0.1-0.6); MONO % 8.4 % (1.7-9.3); PLATELET COUNT 191 K/mm3 (130-400); RED BLOOD COUNT 4.88 M/mm3 (4.20-5.60); REDCELL DISTRIBUTION WIDTH-CV 13.4 % (11.5-14.5)
[2021-08-02 19:38] LABS: ALBUMIN 3.9 gm/dL (3.5-5.0); CALCIUM 9.2 mg/dL (8.4-10.2); CREATININE, serum 1.14 (0.66-1.25); POTASSIUM 4.9 mmol/L (3.4-5.0); TOTAL PROTEIN 7.8 gm/dL (6.4-8.2)
[2021-08-02 19:50] LABS: TROPONIN-I 0.014 ng/mL (0.000-0.035)
[2021-08-02 22:00] VITALS: BP 134/76; PULSE 90; TEMP 97.8
== END 2021-08-02 22:00 | disposition home or self-care (01) ==
LOC: COL.ER 18:42
PROVIDERS: Physician Assistant
DX: E11.65 Type 2 diabetes mellitus with hyperglycemia (principal); E66.01 Morbid (severe) obesity due to excess calories; I25.10 Atherosclerotic heart disease of native coronary artery without angina pectoris; F32.9 Major depressive disorder, single episode, unspecified; Z79.82 Long term (current) use of aspirin; Z79.84 Long term (current) use of oral hypoglycemic drugs; Z79.899 Other long term (current) drug therapy
CPT/HCPCS: J1815; J7030

== ENCOUNTER 2022-02-22 18:50 | Observation (INO) | payer MEDICARE ==
[~2022-02-22] VITALS: Ht 177.8 cm; Wt 139.0 kg
[2022-02-22 19:43] LABS: BASO % 0.4 % (0.0-2.0); EOS # 0.1 K/mm3 (0.0-0.7); EOS % 1.2 % (0.0-4.0); GRAN # 5.3 K/mm3 (1.4-6.5); GRAN % 66.4 % (42.2-75.2); HEMATOCRIT 46.5 % (42.0-52.0); LYMPH % 24.8 % (20.0-51.0); MEAN CELL VOLUME 89 fl (80.0-100.0); MEAN CORPUSCULAR HEMOGLOBIN 31 pg (27-31); MEAN CORPUSCULAR HGB CONC 34 g/dl (33.0-37.0); MEAN PLATELET VOLUME 11.6 fl (7.4-10.4); MONO # 0.6 K/mm3 (0.1-0.6); PLATELET COUNT 209 K/mm3 (130-400); RED BLOOD COUNT 5.22 M/mm3 (4.20-5.60)
[2022-02-22 19:54] LABS: ALANINE AMINOTRANSFERASE 44 U/L (0-55); ALBUMIN 3.4 gm/dL (3.5-5.0); ALKALINE PHOSPHATASE 91 U/L (40-150); ANION GAP 11 mmol/L (7-16); AST,SGOT 26 U/L (5-34); BILIRUBIN,TOTAL 0.6 mg/dL (0.2-1.2); BLOOD UREA NITROGEN 8 mg/dL (8-26); CALCIUM 9.1 mg/dL (8.4-10.2); CARBON DIOXIDE 24 mmol/L (22-29); CHLORIDE 100 mmol/L (98-107); CREATININE, serum 1.33 mg/dL (0.72-1.25); GLUCOSE 371 mg/dL (70-99); POTASSIUM 4.1 mmol/L (3.5-4.5); SODIUM 135 mmol/L (136-145); TOTAL PROTEIN 8.2 gm/dL (6.2-8.1)
[2022-02-22 20:03] LABS: TROPONIN-I < 0.010 ng/mL (0.00-0.033)
[2022-02-22 22:18] LABS: INR 1.2 (0.8-3.0); PROTHROMBIN TIME 13.1 SECONDS (9.7-12.8)
[2022-02-22 22:20] LABS: PARTIAL THROMBOPLASTIN TIME 29.3 SECONDS (26.0-37.0)
[2022-02-22 22:29] LABS: LIPASE 16 U/L (8-78); MAGNESIUM 1.5 mg/dL (1.6-2.6)
[2022-02-22 22:32] LABS: ACETAMINOPHEN < 1.0 ug/mL (10-30); ALCOHOL(ethanol),MEDICAL < 10 mg/dL (0-10); SALICYLATE < 5.0 mg/dL (15.0-30.0)
--- NOTE | 2022-02-22 23:15 | NUR ---
Pt brought up from ED to room 316.
[2022-02-22 23:16] VITALS: BP 126/85; PULSE 88; TEMP 97.9
[2022-02-23] VITALS (7 sets, daily range): BP systolic 104–141; BP diastolic 70–89; PULSE 74–96; TEMP 97.3–98.5
--- NOTE | 2022-02-23 01:40 | NUR ---
Pt is alert and oriented x4 this evening. Calm and cooperative. Resting in the bed. Pt states he was living with his niece, who has now kicked him out. States he does not have any family in the area. He does see a PCP at [facility] and states he has seen Dr. Tripp in the past. Reports he continues to feel a "elephant" like pressure on his chest intermittently. He was given morphine in the ED and I gave it again this evening. He reports it immediately relieves the chest pain. Vital signs are stable. The last blood sugar was 265. 6 units of sliding scale insulin was administered. Oriented the pt to the room and educated to utilize the call thornton. Shift intake assessment and admission intake completed. Covid and infectious disease forms completed. Medications administered and education provided. Allergies confirmed and med rec reviewed with pt. States he has not taken any of his medications in over 3 months or longer. States he cannot afford them. No edema noted in the extremities. Lungs sounds are clear and diminished. Pt is currently in NSR. Provided pt with nourishment. Started NS at 100 ml/hr. Pt denies any skin issues, and none were noted. Pt reports no questions at this time, will continue to monitor.
[2022-02-23 02:45] LABS: TRICYCLIC ANTIDEPRESS URINE NEGATIVE
--- NOTE | 2022-02-23 06:00 | NUR ---
Pt had an uneventful night. Remains alert and oriented. Still complains of the intermittent chest "pressure" pain overnight and asks for morphine about every 2 hours or so. Morphine was given twice overnight. Zofran was given once over night for nausea, and nausea has subsided since. UA taken and brought down to lab last night. Pt resting in bed now. Pt reports no questions at this time. Vital signs stable. Will continue to monitor.
[2022-02-23 07:00] LABS: BASO % 0.3 % (0.0-2.0); EOS # 0.1 K/mm3 (0.0-0.7); GRAN # 3.7 K/mm3 (1.4-6.5); GRAN % 55.1 % (42.2-75.2); HEMATOCRIT 42.9 % (42.0-52.0); HEMOGLOBIN 14.7 g/dl (13.5-18.0); LYMPH # 2.3 K/mm3 (1.2-3.4); LYMPH % 34.3 % (20.0-51.0); MEAN CELL VOLUME 91 fl (80.0-100.0); MEAN CORPUSCULAR HEMOGLOBIN 31 pg (27-31); MEAN CORPUSCULAR HGB CONC 34 g/dl (33.0-37.0); MEAN PLATELET VOLUME 11.8 fl (7.4-10.4); MONO # 0.5 K/mm3 (0.1-0.6); MONO % 8.1 % (1.7-9.3); PLATELET COUNT 162 K/mm3 (130-400); RED BLOOD COUNT 4.72 M/mm3 (4.20-5.60); REDCELL DISTRIBUTION WIDTH-CV 13.2 % (11.5-14.5)
[2022-02-23 07:21] LABS: BILIRUBIN,TOTAL 0.8 mg/dL (0.2-1.2); CALCIUM 8.5 mg/dL (8.4-10.2); CHOLESTEROL RISK RATIO 5.3; CREATININE, serum 1.06 mg/dL (0.72-1.25); TOTAL PROTEIN 7.2 gm/dL (6.2-8.1)
--- NOTE | 2022-02-23 07:36 | NUR ---
Administered IV morphine again, around 0715 for chest pain. Pt says he will be ready for morphine again around [id number].
--- NOTE | 2022-02-23 08:20 | NUR ---
PT DENIES PAIN, REPORTS "THAT NURSE (DEBT COLLECTION SPECIALIST RN) TOOK CARE OF IT WITH THE MORPHINE, ITLL PROBABLY KICK IN AGAIN HERE AROUND, OH SAY 9-9:30". ASSESSMENT PERFORMED, PT REQUESTING COFFEE, DECAF PROVIDED, PT C/O ABOUT BREAKFAST.
--- NOTE | 2022-02-23 12:33 | NUR ---
FOUND ON BATHROOM FLOOR BY JUSTIN CLEMENTE. BRYN CALLED THIS RN, VITALS TAKEN, BS TAKEN, ASSESSED PT, PT REPORTS "I GOT UP TO GO TO THE BATHROOM AND MY CHEST STARTED HURTING AND I GOT ALL WOOZY AND FELL. I PULLED THE CALL LIGHT TO CALL FOR HELP". WHEN ASKED IF HE HIT HIS HEAD PT STATED "I DIDNT HIT IT TOO HARD, MY BUTT TOOK THE BRUNT OF IT.". PT ALSO STATED "THAT DOESNT KNOW WHAT HES DOING, THINKING IM NOT HAVING PAIN, OVERRIDING THE HEART DOCTOR SAYING IM NOT HAVING PAIN, CANCELING THAT MORPHINE LIKE THAT AND NOW I FELL". DR. HOANG NOTIFIED OF PT FALL.
--- NOTE | 2022-02-23 13:28 | NUR ---
social services specialist sierra reporting to this RN that pt was wanting to leave [facility], Dr. Longoria notified and went over risks of leaving and continuation of treatment of care, this RN also discussed risks of leaving [facility] and benefits of staying. [facility] form brought to pt.
--- NOTE | 2022-02-23 13:31 | NUR ---
transit survey worker met with patient to complete discharge plan. Patient states he has been staying at the [facility] for the past three days due to being kicked out of his niece's house. After this, the patient starts to raise his voice and verbalizing his upset of the hospitalist stopping his morphine and that he was " not going to sit in this bed for 3 days in pain. I will go to administration and even the news if i have to". Educated the patient that i had not reviewed his chart, however since he does have multiple disciplinaries on his case, it may not have been the hospitalist. Patient then voices his frustration that we took a UDS without his permission ( which did come back positive for THC and Opioids.I educated the patient that when he signes a consent for treatment that he is indeed singing his consent for a UDS to be done if appropriate. I informed the patient that a review of his chart would be done and i would let him know. Patient reports that he does not have a PCP. Per ER documentation, he is non-compliant with his medications because he cannot afford them. Patient reports that he does not utilize a cane, walker or oxygen at home. Patient does not have a DPOA-HC established. He reports that he has no children and has two brothers and a sister who live out of state. Patient give his brothers name: Gio Almonte NM ([phone]) and his niece JEYSON Rascon ([phone]) as emergency contacts. After review of his chart and collaboration with the patient's RN and hospitalist it was found that the patient's morphine was recommended to be discontinued from the moving worker, per most recent progress note. This SW clarified this with the patient who stated " then i want to be released". I informed the patient's RN who contacted the hospitalist. This SW contacted the [facility] to notify them that the patient was leaving [facility].
--- NOTE | 2022-02-23 13:48 | NUR ---
PT GIVEN AMA FORM TO SIGN, WENT OVER RISKS OF LEAVING AMA AND BENEFITS OF STAYING. PT REPORTS "OH I DIDN'T REFUST ANYTHING I JUST HATE THAT DOCTOR". INFORMED HIM THAT LEAVING AGAINST MEDICAL ADVICE MEANT HE WAS REFUSING TREATMENT. PT THEN CALLED [facility] FOR RIDE. 1353 PT NOW SCREAMING SAYING "GET THAT NURSE BACK IN HERE. I NEED TO STAY, IF I DONT STAY ILL BE HOMELESS". PT CURSING AND THROWING ITEMS IN THE ROOM.
--- NOTE | 2022-02-23 13:48 | NUR ---
Flooring Salesperson offered prayer and support with patient.
--- NOTE | 2022-02-23 13:54 | NUR ---
PT STATED "[facility], THEY WANT ME TO LIVE ON THE [address] WHEN I GET KICKED OUT OF HERE." SECURITY CALLED, DR. HOANG NOTIFED AND STATED "IF HE WANTS TO STAY AND RECIEVE TREATMENT THEN HE CAN. IF HE WANTS TO LEAVE AGAINST MEDICAL ADVICE THEN HE CAN"
--- NOTE | 2022-02-23 14:06 | NUR ---
SECURITY AND SONNY RN ENTERED ROOM WITH THIS RN. PT YELLING "WELL I CAN'T LEAVE OR ILL BE HOMELESS". EDUCATED HE HAS TO BE AGREEABLE TO TREATMENT AND EDUCATED WE WOULD HAVE TO RESTART HIS IV AND TELEMETRY. PT STATED "CANT FUCKING WAIT, YOURE NOT EVEN TREATING ME ANYWAYS". EDUCATED THAT TREATMENT OF BETA BLOCKERS AND ASPIRIN WERE CURRENT PLANS OF CARE AND THAT ECHO AND STRESS TEST WOULD BE PERFORMED FRIDAY. EDUCATED PT HE COULD NOT YELL OR THROW ITEMS AND MUCH BE RESPECTFUL TO STAFF
--- NOTE | 2022-02-23 14:44 | NUR ---
20G STARTED TO RAC BY CHACHA CONNOLLY RN.
--- NOTE | 2022-02-23 14:46 | NUR ---
ASKED DR. HOANG IF HE WANTED TO CONTINUE FLUIDS, ORDERED TO DC
--- NOTE | 2022-02-23 18:10 | NUR ---
PT MUCH CALMER AT THIS TIME THAN EARLIER IN SHIFT, TELE ON, IV IN RAC, PT HAS NOT REPORTED PAIN TO THIS RN OR OTHER STAFF. ASSISTED PT IN CALLING DINNER ORDER IN. PT BED ALARM ON FROM PREVIOUS FALL. NO OTHER NEEDS
[2022-02-24 04:59] VITALS: BP 105/57; PULSE 75; TEMP 98.2
--- NOTE | 2022-02-24 05:12 | NUR ---
PATIENT CALM AND COOPERATIVE THROUGHOUT THE NIGHT. NO NEW ISSUES NOTED OR REPORTED BY PATIENT.
[2022-02-24 07:02] LABS: BASO % 0.2 % (0.0-2.0); EOS # 0.1 K/mm3 (0.0-0.7); EOS % 1.9 % (0.0-4.0); GRAN # 3.6 K/mm3 (1.4-6.5); HEMATOCRIT 42.5 % (42.0-52.0); HEMOGLOBIN 14.5 g/dl (13.5-18.0); LYMPH # 1.5 K/mm3 (1.2-3.4); MEAN CELL VOLUME 90 fl (80.0-100.0); MEAN CORPUSCULAR HEMOGLOBIN 31 pg (27-31); MEAN CORPUSCULAR HGB CONC 34 g/dl (33.0-37.0); MEAN PLATELET VOLUME 11.4 fl (7.4-10.4); MONO # 0.5 K/mm3 (0.1-0.6); MONO % 8.7 % (1.7-9.3); PLATELET COUNT 164 K/mm3 (130-400); RED BLOOD COUNT 4.71 M/mm3 (4.20-5.60)
[2022-02-24 07:15] LABS: CALCIUM 8.7 mg/dL (8.4-10.2); CREATININE, serum 1.08 mg/dL (0.72-1.25); POTASSIUM 4.4 mmol/L (3.5-4.5)
[2022-02-24 07:49] VITALS: BP 124/81; PULSE 83; TEMP 97.7
--- NOTE | 2022-02-24 08:00 | NUR ---
PATIENT IV REMOVED DUE TO CONSTANT MOVEMENT IN BED. VERY ANGRY, AGITATED. UNSATISFIED WITH HOSPITAL REQUIREMENTS FOR CARE. INSISTING PROVIDERS DON'T CARE FOR HIS PAIN. C/O CHEST PAIN, "FEELS LIKE ELEPHANT SITTING ON MY CHEST". CLEANED PATIENT ARM, BANDAGED IV SITE. ENCOURAGED BREAKFAST ORDER, PROVIDED 1 APPLE JUICE.
[2022-02-24 11:14] VITALS: BP 123/81; PULSE 75; TEMP 97.4
--- NOTE | 2022-02-24 11:18 | NUR ---
PATIENT VERY AGGITATED IN ROOM. UNABLE TO REST IN BED OR CHAIR. FREQUENT YAWNING, FREQUENTLY FALLING ASLEEP WHILE AUTHOR BEDSIDE. C/O CONTINUOUS CHEST PAIN, UPSET MORPHINE DC'D. FREQUENT ASSESSMENTS FOR AGGRESSIVE BEHAVIOR.
[2022-02-24 16:05] VITALS: BP 110/76; PULSE 53; TEMP 97.6
--- NOTE | 2022-02-24 17:16 | NUR ---
PATIENT SITTING UP IN BED. PATIENT HAS HX OF IN HOSPITAL FALL, HOWEVER FALL PRECUATIONS NOT IN PLACE DUE TO PATIENT NONCOMPLIANCE. PATIENT REPEATEDLY C/O OF HEAVY CHEST PAIN. EKG SR W/ PVCS. OCCASIONAL PJCS, PACS ASWELL. PATIENT NOTES "I TAKE PERCOCET 10'S 3 TIMES A DAY, I AM IN PAIN AND THE DR'S DON'T CARE". PATIENT NOT ASKING FOR ANY NEEDS OTHER THAN PAIN MEDICATIONS. NO IV PRESENT, WILL NEED ONE PLACED FOR LEXISCAN AND STRESS TEST IN THE MORNING.
[2022-02-24 19:45] VITALS: BP 99/72; PULSE 73; TEMP 97.5
[2022-02-24 23:52] VITALS: BP 104/57; PULSE 68; TEMP 97.5
[2022-02-25] VITALS (12 sets, daily range): BP systolic 104–130; BP diastolic 63–79; PULSE 67–83; TEMP 97.8–97.9
--- NOTE | 2022-02-25 04:51 | NUR ---
NO NEW ISSUES NOTED OR REPORTED BY PATIENT THROUGHOUT THE NIGHT. PATIENT HAS BEEN NPO SINCE 0000.
[2022-02-25 06:33] LABS: BASO % 0.3 % (0.0-2.0); EOS # 0.1 K/mm3 (0.0-0.7); EOS % 2.1 % (0.0-4.0); GRAN % 51.3 % (42.2-75.2); HEMOGLOBIN 15.7 g/dl (13.5-18.0); LYMPH # 2.1 K/mm3 (1.2-3.4); MEAN CELL VOLUME 91 fl (80.0-100.0); MEAN CORPUSCULAR HEMOGLOBIN 31 pg (27-31); MEAN CORPUSCULAR HGB CONC 34 g/dl (33.0-37.0); MEAN PLATELET VOLUME 11.2 fl (7.4-10.4); MONO # 0.5 K/mm3 (0.1-0.6); PLATELET COUNT 193 K/mm3 (130-400); RED BLOOD COUNT 5.07 M/mm3 (4.20-5.60)
[2022-02-25 06:45] LABS: CALCIUM 9.1 mg/dL (8.4-10.2); CREATININE, serum 1.2 mg/dL (0.72-1.25); POTASSIUM 4.1 mmol/L (3.5-4.5)
--- NOTE | 2022-02-25 11:13 | NUR ---
IV SITE INFILTRATED AT 1030. CALLED DR PRYOR PT WAS HOLLERING ABOUT THE PAIN IN HIS ARM AND THEN HE BEGAN TO ITCH. REVIEVED ORDER FOR BENADRYL 50 MG PO. PT WAS GIVEN THE BENADRYL 50MG AT 1055. CALLED PHARMACY TO SEE IF FURTHER PROCEDURES NEEDED TO BE DONE. COLD COMPRESS TO SITE AND ARM RAISED INTO AIR. CALLED AA FOR NEW IV START.
--- NOTE | 2022-02-25 11:28 | NUR ---
CALLED AND REPORTED TO VIRI THAT PT HAD 50 MG PO BENADRYL AT 1055.
[2022-02-25] MEDS ORDERED: TOPROL XL 50MG50 MG PO (13:06)
[2022-02-25] MEDS ORDERED: GLUCOPHAGE500 MG/TAB PO (13:06)
[2022-02-25] MEDS ORDERED: LIPITOR 40MG TA40 MG PO (13:06)
[2022-02-25] MEDS ORDERED: ASPIRIN E.C. 8181 MG PO (13:06)
--- NOTE | 2022-02-25 13:49 | NUR ---
KONSTANTIN contacted the [facility] to see if they are able to accept the patient back. [facility] states that [facility] are unable to accept the patient back unless he wants to be rescreened by a therapist there. [facility] contacted to see if they have a male bed open. They are currently full and are unable to take this patient back. KONSTANTIN student contacted [facility] to obtain pricing on the patients medications. Patient will be discharged with a new perscription for: Ecotrin $4.95, Glucophage $11.07, Lipitor $12, and Toprol $11.11 (Total $39.13). Medication voucher faxed to [facility]. Will offer a taxi voucher to [facility].
--- NOTE | 2022-02-25 14:55 | NUR ---
PATIENT CLEARED IN SCANS. CLEARED TO DC TO HOME. PATIENT IV REMOVED, TELE REMOVED. EDUCATION ON MEDIATIONS AND CHEST PAIN PROVIDED. PATIENT DC'D BY WHEELCHAIR TO ER MANAGER CHANGE FOR UBER TO [facility] FOR [facility].
--- NOTE | 2022-02-25 15:00 | NUR ---
Patient verbalizes that he would like to be rescreened by the [facility]. [facility] contacted and they would not be able to pick this patient up until after 1630. This SW facilitated an Uber ride to get the patient to [facility] and then the [facility]. Ride arranged for 1500 today.
== END 2022-02-25 14:57 | disposition home or self-care (01) ==
LOC: COL.ER 18:50 → MEDICAL 21:41
PROVIDERS: Nurse Practitioner Family; Physician Assistant; Student in an Organized Health Care Education/Training Program; ADMIT Internal Medicine
DX: R07.89 Other chest pain (principal); I25.10 Atherosclerotic heart disease of native coronary artery without angina pectoris; I10 Essential (primary) hypertension; I95.9 Hypotension, unspecified; E78.5 Hyperlipidemia, unspecified; N17.9 Acute kidney failure, unspecified; E87.1 Hypo-osmolality and hyponatremia; E11.9 Type 2 diabetes mellitus without complications; E66.9 Obesity, unspecified; F32.A Depression, unspecified; F17.210 Nicotine dependence, cigarettes, uncomplicated; Z79.899 Other long term (current) drug therapy; Z95.5 Presence of coronary angioplasty implant and graft; Z68.42 Body mass index [BMI] 45.0-49.9, adult; Z91.19 Patient's noncompliance with other medical treatment and regimen; Z59.00 Homelessness unspecified; Z79.84 Long term (current) use of oral hypoglycemic drugs
CPT/HCPCS: 99232-AI; 99233-AI; A9500; G0378; J1650; J1815; J2270; J2405; J2785; J7030; Q9967

== ENCOUNTER 2022-02-25 18:28 | Emergency (ER) | payer MEDICARE ==
[~2022-02-25] VITALS: Ht 177.8 cm; Wt 140.9 kg
[~2022-02-25 18:28] MED LIST changes: +ASPIRIN E.C. 8181 MG PO; +GLUCOPHAGE500 MG/TAB PO; +TOPROL XL 50MG50 MG PO
[2022-02-25 18:35] VITALS: TEMP 97.2
[2022-02-26 01:55] VITALS: BP 211/76; PULSE 89
--- NOTE | 2022-02-26 14:38 | NUR ---
The patient discharged yesterday, 02/25, and went to [facility] to be screened. The patient was not accepted at the [facility] and he returned back to the ED and wanted to be screened by Tim again. In the ED, the patient admitted to Tim and the doctor that he was stating he had suicideal ideation, so he could get placement to have somewhere to stay. The patient has been homeless. The ED discharged the patient to the waiting room. KONSTANTIN contacted [facility]. [facility] is full right now, but the patient is able to stay there, when a bed comes available. KONSTANTIN and SW student met with the patient. The patient states that he has been talking to his niece and she may let him stay in one of his trailers for a few days, but it awaiting confirmation. KONSTANTIN informed him of [facility] and of the option of hanging out at [facility], until his niece could come and get him or a spot opens up at [facility]. The patient verbalized understanding and would like to go to [facility]. He contacted his niece to let her know and he plans on getting back in touch with her today about the trailer. KONSTANTIN provided him with a taxi voucher to [facility] and notified [facility] of the patient coming to them.
== END 2022-02-26 02:35 | disposition home or self-care (01) ==
LOC: COL.ER 18:28
DX: R46.89 Other symptoms and signs involving appearance and behavior (principal); E66.01 Morbid (severe) obesity due to excess calories; Z87.891 Personal history of nicotine dependence
CPT/HCPCS: J1815